=== PATIENT | female | born 1945 | race African-American/Black ===

== ENCOUNTER 2017-08-27 13:47 | Emergency (ER) | payer MEDICARE, OTHER | END 2017-08-27 23:33 | disposition left against medical advice (07) | LOC: E/R 13:47 | DX: Z53.21 Procedure and treatment not carried out due to patient leaving prior to being seen by health care provider (principal) | CPT/HCPCS: 93005 ==

== ENCOUNTER → 2017-08-27 | Outpatient (CLI) | payer MEDICARE, OTHER ==
[2017-08-27 16:00] LABS: ADD MAN DIFF? NO
[2017-08-27 16:20] LABS: WHITE BLOOD COUNT 10.3 10^3/ul (4.8-10.8)
[2017-08-27 16:20] LABS: BASOPHILS % 0.4 % (0.0-2.0); EOSINOPHILS # 0.6 10^3/ul (0.0-0.5); EOSINOPHILS % 5.8 % (0.0-7.0); HEMATOCRIT 38.3 % (37.0-47.0); LYMPHOCYTES # 3.1 10^3/ul (0.8-2.9); LYMPHOCYTES % 30.2 % (15.0-51.0); MEAN CORPUSCULAR HEMOGLOBIN 25.5 pg (29.0-33.0); MEAN CORPUSCULAR HGB CONC 31.3 g/dl (32.0-37.0); MEAN CORPUSCULAR VOLUME 81.3 fl (82.0-101.0); MONOCYTE # 0.9 10^3/ul (0.3-0.9); MONOCYTES % 8.9 % (0.0-11.0); NEUTROPHIL # 5.6 10^3/ul (1.6-7.5); NEUTROPHILS % 54.4 % (39.0-77.0); PLATELET COUNT 188 10^3/UL (140-415); RED BLOOD COUNT 4.71 10^6/ul (4.20-5.40); RED CELL DISTRIBUTION WIDTH 15.3 % (11.5-14.5)
[2017-08-27 16:46] LABS: ALANINE AMINOTRANSFERASE 36 IU/L (13-69); ALBUMIN 3.9 g/dl (3.3-4.9); ALBUMIN/GLOBULIN RATIO 0.97; ALKALINE PHOSPHATASE 137 IU/L (42-121); ANION GAP 13 (8-16); ASPARTATE AMINO TRANSFERASE 30 IU/L (15-46); BILIRUBIN,INDIRECT 0.3 mg/dl (0-1.1); BILIRUBIN,TOTAL 0.3 mg/dl (0.2-1.3); BLOOD UREA NITROGEN 14 mg/dl (7-20); CALCIUM 9.2 mg/dl (8.4-10.2); CARBON DIOXIDE 27 mmol/L (21-31); CHLORIDE 107 mmol/L (97-110); CHOL/HDL RATIO 4.6 RATIO; CHOLESTEROL 207 mg/dl (100-200); CREATININE 0.85 mg/dl (0.44-1.00); GLUCOSE 129 mg/dl (70-220); HDL CHOLESTEROL 45 mg/dl (33-92); LDL CHOLESTEROL,CALCULATED 146 mg/dl; SODIUM 143 mmol/L (135-144); TOTAL PROTEIN 7.9 g/dl (6.1-8.1); TRIGLYCERIDES 81 mg/dl (0-149)
[2017-08-27 17:16] LABS: THYROID STIMULATING HORMONE 0.531 MIU/L (0.465-4.680)
== END | disposition home or self-care (01) ==
LOC: RAD 14:23
DX: I51.7 Cardiomegaly (principal); R05 Cough; I10 Essential (primary) hypertension; R68.89 Other general symptoms and signs; E55.9 Vitamin D deficiency, unspecified
CPT/HCPCS: 71046; 80053; 80061; 84443; 85025

== ENCOUNTER 2017-08-29 12:55 | Emergency (ER) | payer MEDICARE, OTHER ==
[2017-08-29] MEDS: SOD CHLORIDE 0.9% 500 ML IV (13:15)
[2017-08-29] MEDS: LABETALOL HCL 20MG INJ IV (13:30)
[2017-08-29 14:13] LABS: ADD MAN DIFF? NO
[2017-08-29 14:15] LABS: WHITE BLOOD COUNT 9.3 10^3/ul (4.8-10.8)
[2017-08-29 14:15] LABS: BASOPHIL # 0.1 10^3/ul (0.0-0.1); BASOPHILS % 0.5 % (0.0-2.0); EOSINOPHILS # 0.5 10^3/ul (0.0-0.5); EOSINOPHILS % 5.1 % (0.0-7.0); HEMATOCRIT 39.8 % (37.0-47.0); HEMOGLOBIN 12.2 g/dl (12.0-16.0); LYMPHOCYTES # 2.8 10^3/ul (0.8-2.9); LYMPHOCYTES % 29.6 % (15.0-51.0); MEAN CORPUSCULAR HEMOGLOBIN 25.1 pg (29.0-33.0); MEAN CORPUSCULAR HGB CONC 30.7 g/dl (32.0-37.0); MEAN CORPUSCULAR VOLUME 81.9 fl (82.0-101.0); MEAN PLATELET VOLUME 11.5 fl (7.4-10.4); MONOCYTE # 0.9 10^3/ul (0.3-0.9); NEUTROPHIL # 5.1 10^3/ul (1.6-7.5); NEUTROPHILS % 54.4 % (39.0-77.0); PLATELET COUNT 202 10^3/UL (140-415); RED BLOOD COUNT 4.86 10^6/ul (4.20-5.40); RED CELL DISTRIBUTION WIDTH 15.4 % (11.5-14.5)
[2017-08-29 14:33] LABS: ANION GAP 17 (8-16); BLOOD UREA NITROGEN 15 mg/dl (7-20); CALCIUM 8.7 mg/dl (8.4-10.2); CARBON DIOXIDE 24 mmol/L (21-31); CHLORIDE 107 mmol/L (97-110); CREATININE 0.99 mg/dl (0.44-1.00); GLUCOSE 208 mg/dl (70-220); POTASSIUM 3.7 mmol/L (3.5-5.1); SODIUM 144 mmol/L (135-144)
[2017-08-29 14:45] LABS: B-TYPE NATRIURETIC PEPTIDE 507 PG/ML (0-125)
[2017-08-29 14:49] LABS: TROPONIN-I < 0.012 ng/ml (0.00-0.12)
[2017-08-29] MEDS: HYDROmorphONE 0.5 MG/0.5 ML SYG IV (15:00)
[2017-08-29] MEDS: METOCLOPRAMIDE 10 MG INJ IV (15:00)
[2017-08-29] MEDS: KETOROLAC 30 MG INJ IV (18:53)
== END 2017-08-29 20:04 | disposition home or self-care (01) ==
LOC: E/R 20:04
DX: I16.0 Hypertensive urgency (principal); S40.011A Contusion of right shoulder, initial encounter; J45.909 Unspecified asthma, uncomplicated; I10 Essential (primary) hypertension; R40.2252 Coma scale, best verbal response, oriented, at arrival to emergency department; R40.2142 Coma scale, eyes open, spontaneous, at arrival to emergency department; R40.2362 Coma scale, best motor response, obeys commands, at arrival to emergency department; W20.8XXA Other cause of strike by thrown, projected or falling object, initial encounter; Y92.512 Supermarket, store or market as the place of occurrence of the external cause; Z79.82 Long term (current) use of aspirin
CPT/HCPCS: 36415; 70450; 71045; 72125; 73030-RT; 80048; 83880; 84484; 85025; 93005; 96374; 96375; 99291-25

== ENCOUNTER 2018-08-08 16:35 | Emergency (ER) | payer SELFPAY, OTHER, MEDICARE | END 2018-08-08 20:04 | disposition left against medical advice (07) | LOC: E/R 16:35 | DX: Z53.21 Procedure and treatment not carried out due to patient leaving prior to being seen by health care provider (principal) ==